=== PATIENT | male | born 1985 | race Caucasian/White ===

== ENCOUNTER 2016-05-15 16:07 | Emergency (ER) | payer OTHER ==
[~2016-05-15 16:07] MED LIST: AMOXICILLIN PO; BACTRIM DS TABL1 TA1 PO; FLEXERIL10 MG PO; KEFLEX500 MG PO; MOTRIN600 MG PO; NO MEDICATIONS; PERCOCET5/325 PO; PREDNISONE PO; TRIAMCINOLONE A15 G2 TOP; VIBRAMYCIN100 M1 PO; VICODIN 5/500 T1 TAB PO
== END 2016-05-15 16:18 | disposition home or self-care (01) ==
LOC: CFTX 16:07
DX: L03.311 Cellulitis of abdominal wall (principal); F19.10 Other psychoactive substance abuse, uncomplicated; Z88.5 Allergy status to narcotic agent
CPT/HCPCS: 99283

== ENCOUNTER 2016-07-07 18:15 | Emergency (ER) | payer OTHER | END 2016-07-07 19:42 | disposition left against medical advice (07) | LOC: CED 18:15 | DX: R10.11 Right upper quadrant pain (principal); R05 Cough; R50.9 Fever, unspecified; F17.200 Nicotine dependence, unspecified, uncomplicated; Z88.5 Allergy status to narcotic agent | CPT/HCPCS: 36415; 99284 ==

== ENCOUNTER 2016-10-22 23:21 | Emergency (ER) | payer OTHER ==
[~2016-10-22] VITALS: Ht 185.4 cm; Wt 136.1 kg
--- NOTE | ~2016-10-22 | CR63 ---
[facility] A Service of [facility] & [facility] RADIOLOGY TEXT RESULTS PATIENT: STERLING GARCIA LOCATION: [facility] : [birth year] UNIT #: [id number] AGE: [address]: Jeromy Sharpe MD SEX: M ORDER DR: [id number] [facility] [address] [place], [place] [address] [id number] MR#: [id number] Acc #: [id number] NAME: STERLING GARCIA : 1985 SEX: M STUDY DATE/TIME: 10/23/2016 2:18 UNIT: [facility] ROOM: STUDY DESCRIPTION: CR Chest 2 View Attending Physician: Jeromy Sharpe M.D. Ordering Physician: Jeromy Sharpe M.D. Primary Care Physician: Primary Care Physician No MEDICAL IMAGING REPORT This report is preliminary unless electronic signature is present EXAM Chest x-ray, 10/23/2016 HISTORY 31-year-old male in the ED complaining of 2-day history of shortness of air, cough, fever and mid chest pain. TECHNIQUE AP and lateral upright chest series. FINDINGS The lungs are expanded and clear. No visible pulmonary infiltrate or pleural effusion. Heart size and pulmonary vascularity are within normal limits given AP technique. No significant change since 11/15/2009. IMPRESSION Negative chest. Dictated by... Kenny Calderon M.D. THIS IS AN ELECTRONICALLY VERIFIED REPORT Kenny Calderon M.D. at 10/24/2016 6:02 AM RAMILA/petr TD: 10/24/2016 02:27 JOB #: [id number] MEDICAL IMAGING REPORT Page 1 of 1 COPY
[2016-10-23 00:02] LABS: INFLUENZA A NEG (NEG); INFLUENZA B NEG (NEG)
== END 2016-10-23 02:55 | disposition home or self-care (01) ==
LOC: CED 23:21
DX: J06.9 Acute upper respiratory infection, unspecified (principal)
CPT/HCPCS: 71020; 82947; 87804; 94664; 99283